=== PATIENT | female | born 1940 | race Caucasian/White ===

== ENCOUNTER → 2020-08-03 09:53 | Outpatient (CLI) | payer MEDICARE, SELFPAY ==
[2020-08-03 11:15] LABS: COVID19 -Nasal RAPID Negative (Negative)
== END ==
PROVIDERS: Family Provider Family Medicine; PCP Family Medicine; Referring Provider Physician Assistant; Visit Provider Physician Assistant
DX: Z01.812 Encounter for preprocedural laboratory examination (principal); Z20.822 Contact with and (suspected) exposure to COVID-19
CPT/HCPCS: 87635; C9803

== ENCOUNTER 2020-08-05 06:17 | Day surgery (SDC) | payer MEDICARE, SELFPAY ==
[2020-07-29 08:42] VITALS: BMI 31.9
[2020-08-05] VITALS (16 sets, daily range): BP systolic 107–168; BP diastolic 46–90; PULSE 59–83; RESP 10–20; TEMP 36–36.8; O2SAT 91–99; BMI 31.9
--- NOTE | 2020-08-05 06:30 | DI.RAD.S_ITS ---
PROCEDURE: XR SHOULDER LT 1V INDICATIONS: post op total shoulder TECHNIQUE: Single views of the shoulder were acquired. COMPARISON: [facility], [place], CT SHOULDER LEFT WITHOUT CONTRAST, 06/18/2020, 11:46. [facility], [place], XR SHOULDER 2+ VIEWS BILATERAL, 04/18/2020, 9:44. FINDINGS: Bones: No acute fracture. Expected alignment of left shoulder arthroplasty. Hardware appears intact. Moderate AC osteoarthritis. Soft tissues: No suspicious soft tissue calcifications. IMPRESSION: Expected alignment Dictated by: Juice Nix M.D. on 08/05/2020 at 10:44 Approved by: Juice Nix M.D. on 08/05/2020 at 10:45
--- NOTE | 2020-08-05 07:13 | PM.PREOP ---
Pre-operative Note COVID-19 COVID-19 status: Negative Result date/Date tested (Pos, Neg/Pending): 08/03/20 Interval Note History & Physical reviewed/Exam performed by Physician: Yes Changes to H&P: No
[2020-08-05] MEDS: ACETAMINOPHEN 325 MG TABLET 975 MG PO (07:17)
[2020-08-05] MEDS: LACTATED RINGERS 1,000 ML 42 ML IV (07:19)
[2020-08-05] MEDS: PREGABALIN 75 MG CAPSULE PO (07:26)
--- NOTE | 2020-08-05 07:51 | SUR.PREOP ---
Block start time [0747] . Monitoring initiated and maintained throughout procedure. Oxygen and medications given per Dr Amos anesthesiologist instructions. Patient remained stable throughout procedure, no adverse reactions noted. Block end time [0750].
[2020-08-05] MEDS: CEFAZOLIN 1 GM VIAL 2 GM IV (08:10)
[2020-08-05] MEDS: TRANEXAMIC ACID 1,000 MG in SODIUM CHLORIDE 0.9% 100 ML 200 ML IV ×2 (08:11→09:31)
--- NOTE | 2020-08-05 08:28 | SUR.OPER ---
Beach chair with Schlein shoulder positioner. Lower body on padded OR bed. Head in foam padded head cradle, secured with straps. Non-operative arm secured <90 degrees abduction. Pillow under knees. Safety belt at thigh. Cloth tape over blanket over lower legs.
--- NOTE | 2020-08-05 08:28 | PM.PROC.1 ---
Procedures Date/Time Date of procedure: 08/05/20 Time of procedure: 07:49 Nerve Block Time out performed: Yes Nerve blocks: brachial plexus (intrascalene LEFT) Procedure successful: Yes Patient tolerated procedure: well and no complications Additional comments: Intrascalene block performed for post-op pain control at surgeon request. Patient was positioned with IV, O2, monitors and rescue meds available. Prepped and timeout performed. Target identified with continuous ultrasound guidance. 15 mL of bupivicaine 0.5% was injected perineurally with intermittent aspiration and injection. No blood, no paresthesias, no acute complications.
[2020-08-05] MEDS: BUPIVACAINE 0.5% (PF) VIAL 30 ML INJ (08:35)
[2020-08-05] MEDS: THROMBIN (RECOMBINANT) 5,000 UNIT VIAL 5000 UNIT TOP (08:37)
--- NOTE | 2020-08-05 10:08 | PM.OP.1 ---
Operative Date/Time/Diagnoses Date of procedure: 08/05/20 Time of procedure: 10:08 Pre-op diagnosis: Left shoulder osteoarthritis Post-op diagnosis: same Procedure & Clinicians Procedure: left total shoulder replacement Same procedure as scheduled: Yes Indications: The patient has had progressively worsening left shoulder pain with radiographic changes consistent with arthritis. Non-operative management has failed and the patient has requested total shoulder replacement. The risks, benefits and alternatives to surgery were discussed with the patient prior to proceeding. Risks discussed included, but were not limited to, failure to relieve pain, stiffness, infection, nerve damage, deep venous thrombosis, pulmonary embolism, stroke, coma, heart attack, permanent paralysis and , as well as the potential need for eventual revision of the prosthetic. Surgeon: Wicho Mars Theatre Program Director: Chelsea Marc Anesthesia Type: General, Peripheral nerve block and Local Operative Notes Findings: Moderately severe left shoulder osteoarthritis with large inferior osteophyte. Closure Type: primary Specimen(s): none sent Prosthetic devices, grafts, tissues, transplants, or devices: Implants used in this procedure were manufactured by the [employer] and included an Eclipse total shoulder system with a 43 mm trunion, a medium size cage screw, a 43/18 humeral head and a medium VaultLock glenoid. In addition, a Speedbridge system with 4 SwiveLock anchors was used for the subscapularis closure. Applied: implant(s) Estimated Blood Loss (mL): 100 Blood products transfused: none Procedure in detail: The patient was seen in the pre-operative area, where the patient identified the left shoulder as the operative site and this was marked with my initials. The patient received pre-operative antibiotics, underwent an interscalene block, and was taken to the operating room and placed on the operative table in the supine position. After satisfactory anesthesia, a radio time salesperson out was performed. The patient was repositioned in the beach chair position using a dedicated positioner. All pressure points were well padded, and the knees were slightly bent to prevent tension on the sciatic nerves. The left arm was prepared from the fingers to the base of the neck with ChloraPrep in the usual fashion and draped through sterile drapes. An approximately 15 cm incision was created, starting at the clavicle above the coracoid process and extended towards the deltoid insertion. The deltopectoral interval was used to access the shoulder. The cephalic vein was taken medially. A self retaining retractor was placed. The upper centimeter of the pectoralis major tendon was released. The three sisters were identified and cauterized. The axillary nerve was palpated and protected throughout the case. The biceps was released from its groove and tenodesed over the top of the pectoralis major tendon. The subscapularis was released from the lesser tuberosity with a subscapularis peel and tagged for later repair. The shoulder was dislocated and a cutting guide was used for the proximal humeral osteotomy in 30 degrees of retroversion. The sizers were used to select the appropriate size trunnion. The central score was created for the cylindrical guides. The depth guide was used to choose a medium cage screw. A proximal humeral protector was then placed. We then removed the self-retaining retractor and placed retractors to access the glenoid. The subscapularis was released with a 360 degree release with care being taken to protect the axillary nerve with the inferior portion of this procedure. The remnant of labrum and biceps stump were removed. The appropriate size reamer was chosen with the glenoid sizer, and the guide pin placed. The glenoid was appropriately reamed. The guide for the peripheral holes was used and the center hole enlarged. The trial glenoid was placed with good stability. We then cemented the final implant into place after irrigating the peg holes and drying them with thrombin-soaked Gelfoam. We returned our attention to the humerus. The humeral protector was removed. the appropriate size trunnion was impacted into place. The cage screw was placed through the trunnion and tightened. A trial humeral head was then applied. Stability was checked with 50% posterior translation with spontaneous reduction, 45? external rotation at the side with the subscapularis held in the repaired position and in excess of 70? internal rotation in the scare [place] position. This was felt to be satisfactory and the appropriate implant was opened. The guide for placement of the speed bridge was placed on the humeral neck. The holes were created for the anchors. The humeral head was applied and impacted onto the trunnion. The joint was irrigated and the subscapularis repaired using the speed bridge system. The top of the subscapularis was closed to the leading edge of the supraspinatus with a figure of 8 #2 TiCron to close the rotator interval. A deep drain was placed and brought out supero-laterally. The deltopectoral interval was closed with interrupted 0 Vicryl. The subcutaneous layer was closed with 3-0 Vicryl, and the skin with a running 3-0 V-Lock suture and SteriStrips. An Aquacel Ag dressing was applied, the patient's arm was placed in a sling, and the patient was taken to recovery having tolerated the procedure well. Complications: none Post-operative Condition: stable Disposition: PACU Plan for aftercare: The patient will be maintained on a standard total shoulder replacement protocol with passive range of motion limited to 90 degrees forward flexion, 0 degrees external rotation at the side, 0 degrees abduction and internal rotation to the body. The patient will receive aspirin and sequential compression devices for DVT prophylaxis. The patient will be discharged home when safe for the home environment, likely tomorrow.
[2020-08-05] MEDS: ONDANSETRON 4 MG/2 ML INJ IV (10:18)
[2020-08-05] MEDS: OXYCODONE IR 5 MG TABLET PO (10:21)
--- NOTE | 2020-08-05 10:54 | SUR.PHASEI ---
Pt trasfered to room 204 with handoff at bedside to Jennifer CARLOS. Bed in low position, locked, call light in reach. O2 sat monitor on. Pt placed on 2L NC for o2 sat 94% but still sleepy and no family in room.
--- NOTE | 2020-08-05 10:58 | PC.NURSE ---
Patient arrived to floor via bed. A/O x 3. Reports pain /10. Reports tingling in LUE, CMS intact, sling in place. Dsg CDI. Ice to shoulder. VSS. Patient transferred on 1 L, currently 96% on room air. Cont pulse ox on. Will continue to monitor. Lungs clear. IS placed bedside, patient instructed on use. Patient reports last BM was this morning (08/05). SCD's on. Patient instructed to call before getting OOB. Patient verbalized understanding. Call light in reach.
[2020-08-05] MEDS: LACTATED RINGERS 1,000 ML 100 ML IV ×2 (11:09→18:29)
[2020-08-05] MEDS: ACETAMINOPHEN 325 MG TABLET 650 MG PO ×2 (14:36→20:15)
--- NOTE | 2020-08-05 16:31 | PT.IIE ---
Current Diagnoses Primary osteoarthritis, left shoulder (08/05/20) Surgery Performed Operation Date: 08/05/20 07:45 Actual Procedures p Total Shoulder Arthroplasty(Left) - Wicho Mars MD Medical History (Last Updated 07/29/20 @ 09:16 by Jaimee Montanez RN) CKD (chronic kidney disease), stage II Easy bruisability GERD (gastroesophageal reflux disease) HLD (hyperlipidemia) HTN (hypertension) Osteoarthritis Physical Therapy Inpatient Evaluation/Re-Eval M1 PT/OT-IP Prior Functional Status Start: 08/05/20 14:52 Freq: NEEDED Status: Active Protocol: Document 08/05/20 14:53 [facility] (Rec: 08/05/20 16:30 [facility] [id number]) Medical Review Prior Functional Status Medical History Reviewed Yes Diet/Fluid Consistency Regular Communication WNL Mobility and Gait Pt amb without AD in her home and uses cane for longer bouts Activities of Daily Living and IADL's indep w/ADLs Social History Household Members spouse Living Arrangements House Number of Floors (Floors) 3 or More Floors Number of Stairs To Enter/Railing? no steps to enter Home Environment High Toilet,Walk in Shower, Bidet Home Equipment Straight Cane,Shower Seat without Backrest Employment Status Retired Additional Social History Comment has bed that elevates up/down, at [facility] M2 PT-IP Current Condition Start: 08/05/20 14:52 Freq: NEEDED Status: Active Protocol: Document 08/05/20 14:53 [facility] (Rec: 08/05/20 16:30 [facility] [id number]) Physical Therapy Current Condition Current Condition Evaluation Date 08/05/20 Treatment Diagnosis L TSA Onset Date 08/05/20 Precautions Shoulder Precautions Sling,PROM,Internal Rotation to Body,No External Rotation, No Abduction,Forward Flexion to 90 degrees Weight Bearing Status Weight Bearing Status Non-Weight Bearing Allowed Weight Bearing Amount (enter % LUE or #) (%) M3 PT-IP Subjective Start: 08/05/20 14:52 Freq: NEEDED Status: Active Protocol: Document 08/05/20 14:53 [facility] (Rec: 08/05/20 16:30 [facility] [id number]) Subjective Physical Therapy Visit Type Type Initial Evaluation Visit Start Time 13:54 Visit Stop Time 14:30 Total Visit Minutes 36 Number of ACTUARIAL CLERK Visits 0 Physical Therapy Visit Comments Patient Comments Pt reports having a zhang spot in R eye with a little light show. She already told nurse. THis is new since surgery Therapy Pain Assessment Pain Present Pain Present Denied Pain M4 PT-IP Mobility and Gait Start: 08/05/20 14:52 Freq: NEEDED Status: Active Protocol: Document 08/05/20 14:53 [facility] (Rec: 08/05/20 16:30 [facility] [id number]) PT-Bed Mobility Assessment Supine to Sit Supine to Sit Independent,Head of Bed Elevated Scooting Scooting to Edge of Bed Independent PT-Transfer Assessment Sit to and From Stand Sit to and from Stand Standby Assistance,Use of Upper Extremities Equipment Transfer Assistive Device Gait Belt Orthotic/Prosthetic Devices or Brace: Yes Comments Mobility Comments supine to sit w/HOB elevated ( pt has elevating HOB at home) and scooted to EOB w/use of RUE indep. PT adjusted pt's sling and educated pt on how to have sling set up. She did sit to stand w/SBA and amb about 220ft without LOB but mild lat leaning that inc w/ further gait. She did stairs fwd up w/R rail step through then step to down sideways w/ rail. Pt educated on how to dress and bath after TSA without doing active shoulder motion. Pt left with call light in room. Gait Assessment Gait Gait Assistance Required: Standby Assistance Distance (Feet) 250 Able to Maintain Weight Bearing Status Yes During Gait Assistive Devices Assistive Device Gait Belt Orthotic/Prosthetic Devices or Brace: Yes Gait Deviations General Gait Pattern Lateral Trunk Lean Factors Limiting Gait Function Factors Limiting Gait Function Decreased Strength,Pain,Poor Balance Comments Gait Comments see above Stair Climbing Assessment Evaluation Level of Assist On Stairs Standby Assistance Devices Stair Climbing Assistive Devices Right Railing Technique/Endurance Stair Climbing Direction Ascend and Descend Stair Climbing Technique Step Over Step,Step to Step Number of Steps Climbed 3 Query Text: PT-Balance Assessment Sitting Balance and Reactions Static Sitting Balance Ability Normal Dynamic Sitting Balance Ability Normal Standing Balance and Reactions Static Standing Balance Ability Good Dynamic Standing Balance Ability Fair M5 PT-IP Objective Assessments Start: 08/05/20 14:52 Freq: NEEDED Status: Active Protocol: Document 08/05/20 14:53 [facility] (Rec: 08/05/20 16:30 [facility] [id number]) Orientation Orientation/Cognition Level of Alertness Alert Safety Awareness Understands Safety Issues Memory Description No Deficits Noted Gross Range of Motion Upper Extremity ROM Assessment Left Impaired M6 PT-IP Treatment Start: 08/05/20 14:52 Freq: NEEDED Status: Active Protocol: Document 08/05/20 14:53 [facility] (Rec: 08/05/20 16:30 [facility] [id number]) Physical Therapy Treatment Education Education Provided Safety Brace Education [place] Other Treatments Other Treatment Performed see above M7 PT-IP Assessment and Plan Start: 08/05/20 14:52 Freq: NEEDED Status: Active Protocol: Document 08/05/20 14:53 [facility] (Rec: 08/05/20 16:30 [facility] [id number]) PT Summary Assessment and Plan Potential Rehabilitation Potential Excellent Status of Condition at Evaluation Evolving Summary Impairments Pain,ROM,Strength,Transfers, Gait,Activity Tolerance Assessment Summary Pt is day of s/p L TSA with good safety awareness and good mobility with bed mobility, transfers and gait. She was able to do stairs safely with cueing for sideways down in order to be able to use rail. She was very receptive to education w/no active movemetn of shoulder and how she can use shower bench and how to don/doff shirts Goals Bed Mobility Goal Independent Transfer Goal Independent Gait Goal Independent Gait Distance 150ft Other Goals up/down flight of stairs w/R rail indep Days to Meet Goals 3 Frequency of Treatment Frequency Of Treatment Twice a Day Treatment Plan Physical Therapy Treatment Plan Bed Mobility Training,Transfer Training,Gait Training, Therapeutic Exercise, Neuromuscular Re-ed Precautions Shoulder Precautions Sling,PROM,Internal Rotation to Body,No External Rotation, No Abduction,Forward Flexion to 90 degrees Recommendations To Nursing Amount of Assist Needed Standby Assistance Discharge Recommendations PT Discharge Recommendations Home with Assistance, Outpatient PT Transportation Needs at Discharge Private Vehicle
--- NOTE | 2020-08-05 18:47 | PC.NURSE ---
Addendum entered by Marian Castro R.N. 08/05/20 22:05: Pt had uneventful evening. Denies discomfort when asked. Left arm in sling, wiggling fingers Aquacell CDI. Stable post op course. Call light w/in reach/bed alarm on for pt safety. Continue w/plan of care. Original Note: Pt resting at intervals Lungs clear, SpO2 98% RA Left shoulder in sling. Aquacell dsg to surgical site CDI. Denies discomfort at this time. Stable post op course. Calll light w/in reach, bed alarm on for pt safety.
[2020-08-05] MEDS: ATORVASTATIN 20 MG TABLET PO (20:15)
[2020-08-05] MEDS: DOCUSATE 100 MG CAPSULE PO (20:15)
[2020-08-05] MEDS: ASPIRIN EC 81 MG TABLET PO (20:15)
[2020-08-05] MEDS: FAMOTIDINE 20 MG TABLET PO (20:15)
[2020-08-05] MEDS: lisinopriL 20 MG TABLET PO (20:15)
[2020-08-06] VITALS: BP 136/56; PULSE 60; RESP 16; TEMP 36.7; O2SAT 96
[2020-08-06] MEDS: ONDANSETRON 4 MG ODT PO ×2 (00:30→04:07)
[2020-08-06] MEDS: OXYCODONE IR 5 MG TABLET PO ×4 (00:36→11:16)
[2020-08-06] MEDS: SODIUM CHLORIDE 0.9% FLUSH 10 ML IV ×2 (04:45→08:18)
[2020-08-06 04:47] VITALS: BP 102/60; PULSE 66; RESP 16; TEMP 36.2; O2SAT 96
[2020-08-06 07:47] LABS: Hematocrit 33.2 % (36-46); Hemoglobin 10.9 g/dL (12.0-16.0)
--- NOTE | 2020-08-06 08:07 | PM.DS.1 ---
History of Present Illness History of Present Illness Date Patient Seen: 08/06/20 Time Patient Seen: 08:07 Chief complaint: OPB Narrative: The history and physical is contained in the chart in a previously completed note. Please refer to that note for this information. Discharge Providers Provider Date of admission: 08/05/20 Discharge Date: 08/06/20 Primary care physician: Alannah Licona PA-C Consults: 08/05/20 10:57 Consult to Discharge Planning Routine Comment: Consult to Physical Therapy Evaluate & Treat Comment: Physician Instructions: pendulums, PROM 90 FF, 0 ABD, 0 ER, IR to body Discharge provider: Wicho Mars MD Summary Hospital Course Discharge Diagnosis: Left shoulder osteoarthritis Hospital Course: The patient was admitted to the hospital and taken directly to the operating room where she underwent a left total shoulder replacement on August 05, 2020. She tolerated this well and was comfortable on postoperative day 1. Status at Discharge Cognitive/behavioral status at discharge: oriented Functional status at discharge: independent ambulation Overall status at discharge: patient is progressing back to baseline Time Spent with Patient Time spent: Less than 30 minutes Exam Vital Signs (past 8 hours): - 08/06/20 04:47 Temperature 97.1 F L Pulse Rate 66 Respiratory Rate 16 Blood Pressure 102/60 Pulse Oximetry 96 Oxygen Delivery Method Room Air Oxygen Flow Rate 0 Narrative Exam Narrative: Left shoulder wound is dressed with no drainage on the bandage. Light touch is objectively intact in the radial, ulnar, median, musculocutaneous and axillary nerve distribution. She can extend her thumb, abduct her thumb, abduct her fingers and can fire her biceps and deltoid. Objective Labs Result Diagrams: 08/06/20 07:04 Labs: Laboratory Results - last 24 hr 08/06/20 07:04 Hgb 10.9 L Hct 33.2 L PFSH Medical History (Updated 07/29/20 @ 09:16 by Jaimee Montanez RN) CKD (chronic kidney disease), stage II Easy bruisability GERD (gastroesophageal reflux disease) HLD (hyperlipidemia) HTN (hypertension) Osteoarthritis Surgical History (Updated 07/29/20 @ 09:16 by Jaimee Montanez RN) History of arthroplasty of left knee (2010) History of arthroplasty of right knee (2019) History of bilateral tubal ligation History of bladder surgery History of bunionectomy of right great toe Hx of appendectomy Hx of bilateral cataract extraction Hx of laminectomy (07/19/13) Hx of laminectomy (2019) Hx of sinus surgery Hx of tonsillectomy Social History household members: spouse Smoking Status: Former smoker alcohol intake: current Discharge Assessment & Plan Assessment and Plan Assessment: Stable postoperative day 1 status post left total shoulder replacement. Appears to be stable enough to be able to go home today. Plan of Treatment: Discharge home. Follow up my office in 10-14 days. Medications have been called in for oxycodone and Zofran. She will be instructed in the use of Tylenol and low-dose aspirin. Discharge Plan Discharge Plan Patient Disposition: Home Discharge orders & Medications Discharge Orders: Discharge (Order); Ordered 08/06/20 Ordered By: Wicho Mars Prescriptions: New acetaminophen 325 mg Tablet 650 mg PO TID 30 Days Qty: 180 RF: 0 aspirin 81 mg Tablet,Delayed Release (Dr/Ec) 81 mg PO BID 42 Days Qty: 84 RF: 0 ondansetron 4 mg Tablet,Disintegrating 4 mg PO Q4HR PRN (Reason: Nausea) Qty: 30 RF: 0 oxycodone 5 mg Tablet 5 mg PO Q4H PRN (Reason: Pain, Moderate (4-6)) Qty: 40 RF: 0 Continued lisinopril 20 mg Tablet 20 mg PO BID RF: 0 simvastatin 40 mg Tablet 40 mg PO BEDTIME RF: 0 famotidine [Acid Controller] 20 mg Tablet 20 mg PO BID RF: 0 Discontinued aspirin [Aspirin Low-Strength] 81 mg Tablet,Delayed Release (Dr/Ec) 81 mg PO Q OTHER DAY RF: 0 Follow up/Referrals: Alannah Licona PA-C [Primary Care Provider] - Wicho Mars MD [Physician] - 2 Weeks Diet/Activity/Treatments Diet: Diet as Tolerated and Regular Activity: You may use your left hand in front of her body below shoulder level. Lift no more than 1-2 lb with your left hand. Cold/Heat Therapy: You may apply ice to your left shoulder for 15 minutes every hour as needed for pain control. Skin/Wound/Dressing Care Report to your healthcare provider any signs of infection, such as:: chills, fever, night sweats, increased pain, unusual drainage and unusual redness Dressing: Leave the dressing intact until follow-up. You may shower with the dressing in place. If the central strip of the deeper dressing becomes saturated with either water or blood, please call the office. Visit Report/Discharge Packet Instructions: DI for Shoulder Replacement Stand Alone Forms: Surgery Discharge Discharge Data Primary Care Provider: Alannah Licona Attending Provider: Wicho Mars
[2020-08-06] MEDS: ACETAMINOPHEN 325 MG TABLET 650 MG PO (08:17)
[2020-08-06] MEDS: IBUPROFEN 400 MG TABLET PO (08:17)
[2020-08-06] MEDS: DOCUSATE 100 MG CAPSULE PO (08:17)
[2020-08-06 08:18] VITALS: BP 102/60; PULSE 66
[2020-08-06] MEDS: lisinopriL 20 MG TABLET PO (08:18)
[2020-08-06] MEDS: ASPIRIN EC 81 MG TABLET PO (08:18)
[2020-08-06] MEDS: FAMOTIDINE 20 MG TABLET PO (08:18)
[2020-08-06 08:55] VITALS: BP 116/63; PULSE 75; RESP 16; TEMP 36.5; O2SAT 96
--- NOTE | 2020-08-06 09:11 | CM.DANOTE ---
DCP: Case received, EMR reviewed and met with patient. Introduced self and role. Was able to obtain information regarding patient's baseline activity status prior to surgery, as well as her current living situation. DCP assessment completed with information currently available. Patient is a 79 year old female who admitted yesterday morning to the care of the orthopedic team. PCP: Dr. Licona. Payer: Medicare/[employer]. Patient came to the hospital via private vehicle for surgical procedure. She had a left shoulder replacement. Patient has history of osteoarthritis of her left shoulder. Met with patient this morning. She is alert and oriented, pleasant. She was sitting on the edge of her bed having breakfast. Confirmed that she resides in [place] with her spouse, Tommy. She indicated that he is currently at [facility], and expected to discharge tomorrow. She stated that he had suddenly had to go to the hospital when she had her surgery. Confirmed with patient that her daughter, Dori, will be assisting her at home. Patient indicated that she drives, and currently uses a cane when outside walking. Her and her spouse reside in [place]. She is set up for outpatient P.T. at [facility]. P: Patient is to be discharged home today after she works with P.T. Radhika Calderon RN/Sorting Machine Attendant
--- NOTE | 2020-08-06 09:52 | PT.IPTN ---
Current Diagnoses Primary osteoarthritis, left shoulder (08/05/20) Surgery Performed Operation Date: 08/05/20 07:45 Actual Procedures p Total Shoulder Arthroplasty(Left) - Wicho Mars MD Physical Therapy Treatment Note M2 PT-IP Current Condition Start: 08/05/20 14:52 Freq: NEEDED Status: Discharge Protocol: Document 08/05/20 14:53 [facility] (Rec: 08/05/20 16:30 [facility] [id number]) Physical Therapy Current Condition Current Condition Evaluation Date 08/05/20 Treatment Diagnosis L TSA Onset Date 08/05/20 Precautions Shoulder Precautions Sling,PROM,Internal Rotation to Body,No External Rotation, No Abduction,Forward Flexion to 90 degrees Weight Bearing Status Weight Bearing Status Non-Weight Bearing Allowed Weight Bearing Amount (enter % LUE or #) (%) M3 PT-IP Subjective Start: 08/05/20 14:52 Freq: NEEDED Status: Discharge Protocol: Document 08/06/20 09:52 AW (Rec: 08/06/20 11:52 AW [id number]) Subjective Physical Therapy Visit Type Type Treatment Note Visit Start Time 09:28 Visit Stop Time 09:52 Total Visit Minutes 24 Number of MATHEMATICAL STATISTICIAN Visits 0 Physical Therapy Visit Comments Patient Comments Pt would like assist to get dressed. M4 PT-IP Mobility and Gait Start: 08/05/20 14:52 Freq: NEEDED Status: Discharge Protocol: Document 08/06/20 09:52 AW (Rec: 08/06/20 11:52 AW [id number]) PT-Bed Mobility Assessment Supine to Sit Supine to Sit Independent,Head of Bed Elevated Scooting Scooting to Edge of Bed Independent PT-Transfer Assessment Sit to and From Stand Sit to and from Stand Standby Assistance,Use of Upper Extremities Equipment Transfer Assistive Device Gait Belt Orthotic/Prosthetic Devices or Brace: Yes Transfers Transfer Destination Chair Transfer Technique Stand Step Pivot Transfer Ability Level of Assist Standby Assistance Comments Mobility Comments Pt moved with ease, demonstrating good understanding of precautions and was able to limit active movement of her right shoulder . Gait Assessment Gait Gait Assistance Required: Standby Assistance Distance (Feet) 30 Assistive Devices Orthotic/Prosthetic Devices or Brace: Yes Gait Deviations General Gait Pattern Lateral Trunk Lean Factors Limiting Gait Function Factors Limiting Gait Function Decreased Strength,Pain,Poor Balance Comments Gait Comments In room only. PT-Balance Assessment Sitting Balance and Reactions Static Sitting Balance Ability Normal Dynamic Sitting Balance Ability Normal Standing Balance and Reactions Static Standing Balance Ability Good Dynamic Standing Balance Ability Good M5 PT-IP Objective Assessments Start: 08/05/20 14:52 Freq: NEEDED Status: Discharge Protocol: Document 08/05/20 14:53 LR (Rec: 08/05/20 16:30 [facility] [id number]) Orientation Orientation/Cognition Level of Alertness Alert Safety Awareness Understands Safety Issues Memory Description No Deficits Noted Gross Range of Motion Upper Extremity ROM Assessment Left Impaired M6 PT-IP Treatment Start: 08/05/20 14:52 Freq: NEEDED Status: Discharge Protocol: Document 08/06/20 09:52 AW (Rec: 08/06/20 11:52 AW [id number]) Physical Therapy Treatment Exercises Exercises Shoulder Pendulums,Shoulder Flexion,Elbow Flexion/ Extension,Wrist ROM,Hand ROM Education Education Provided Precautions,Post-Op Packet, Safety Brace Education Donning,[place],Patient Other Treatments Other Treatment Performed Pt was able to don and doff her sling with verbal cues. Provided education and verbal cues for dressing. Performed 10 reps of all exercises above for independence with HEP. M7 PT-IP Assessment and Plan Start: 08/05/20 14:52 Freq: NEEDED Status: Discharge Protocol: Document 08/06/20 09:52 AW (Rec: 08/06/20 11:52 AW [id number]) PT Summary Assessment and Plan Summary Impairments Pain,ROM,Strength,Transfers, Gait,Activity Tolerance Assessment Summary Pt is POD1 following L TSA. Treatment focused on ther ex and ADL's. Pt able to perform all with minimal cueing. She is safe to discharge home with assist. Goals Bed Mobility Goal Independent Transfer Goal Independent Gait Goal Independent Gait Distance 150ft Other Goals up/down flight of stairs w/R rail indep Days to Meet Goals 3 Frequency of Treatment Frequency Of Treatment Discharge Precautions Shoulder Precautions Sling,PROM,Internal Rotation to Body,No External Rotation, No Abduction,Forward Flexion to 90 degrees Recommendations To Nursing Amount of Assist Needed Independent Discharge Recommendations PT Discharge Recommendations Home with Assistance, Outpatient PT Transportation Needs at Discharge Private Vehicle
--- NOTE | 2020-08-06 11:18 | PC.NURSE ---
Patient educated about diet, activity, follow up with Dr. Mars, Lifting, SS of infection, medications, ss of stroke. Patient and daughter verbalized understanding to all discharge teaching. Patient left facility with all belongings via wheelchair with daughter. Patient prescriptions electronically sent to pharmacy.
== END 2020-08-06 11:22 | disposition home or self-care (01) ==
LOC: OR 06:20 → AC 06:21
PROVIDERS: Family Provider Family Medicine; PCP Physician Assistant; Referring Provider Orthopaedic Surgery; Visit Provider Orthopaedic Surgery
PROC: (CPT 23472; principal; 2020-08-05 07:45)
DX: M19.012 Primary osteoarthritis, left shoulder (principal); I12.9 Hypertensive chronic kidney disease with stage 1 through stage 4 chronic kidney disease, or unspecified chronic kidney disease; N18.2 Chronic kidney disease, stage 2 (mild); K21.9 Gastro-esophageal reflux disease without esophagitis; E78.5 Hyperlipidemia, unspecified; E66.9 Obesity, unspecified; Z68.32 Body mass index [BMI] 32.0-32.9, adult; Z87.891 Personal history of nicotine dependence
CPT/HCPCS: 23472; 36415; 64450; 73020; 85014; 85018; 97110; 97162; 97530; 97535; C1776; A9270; J0330; J0690; J1100; J2405; J2704; J3010